=== PATIENT | male | born 1975 | race Caucasian/White ===

== ENCOUNTER 2018-12-31 15:58 | Emergency (ER) | payer SELFPAY ==
[~2018-12-31] VITALS: Ht 180.3 cm; Wt 81.6 kg
--- NOTE | 2018-12-31 17:32 | NUR ---
Patient discharged to home in stable conditon. Written and verbal after care instructions given. Patient verbalizes understanding of instructions.
[2018-12-31 17:33] VITALS: BP 124/87
== END 2018-12-31 17:34 | disposition home or self-care (01) ==
LOC: ER 15:58
DX: L72.3 Sebaceous cyst (principal)
CPT/HCPCS: A4663